=== PATIENT | male | born 2005 | race Two or more races ===

== ENCOUNTER 2024-09-13 22:26 | Emergency (ER) | payer MEDICAID ==
[~2024-09-13] VITALS: Ht 175.3 cm; Wt 100.0 kg
[2024-09-13 22:29] VITALS: TEMP 98
[2024-09-14 00:59] VITALS: BP 146/87; PULSE 68; RESP 16; O2SAT 97
[2024-09-14] MEDS: METHOCARBAMOL 500 MG TABLET PO ONE (02:08)
[2024-09-14] MEDS: ACETAMINOPHEN 500 MG TABLET PO ONE (02:09)
[2024-09-14] MEDS: IBUPROFEN 400 MG TABLET PO ONE (02:09)
[2024-09-14] MEDS: LIDOCAINE 5% TRANSDERMAL PATCH TD ONE (02:10)
[2024-09-14] MEDS ORDERED: METH-812 PO (02:57)
== END 2024-09-14 03:03 | disposition home or self-care (01) ==
LOC: EMS 23:14
DX: M54.50 Low back pain, unspecified (principal)
CPT/HCPCS: 99284; Z7502; Z7610